=== PATIENT | male | born 1965 | race Caucasian/White ===

== ENCOUNTER 2019-12-26 07:05 | Outpatient (CLI) | payer MEDICARE, SELFPAY ==
[2019-12-26 08:04] LABS: Alanine Aminotransferase 24 U/L (16-63); Albumin Level 3.5 g/dL (3.4-5.0); Alkaline Phosphatase 81 U/L (46-116); Anion Gap 8.6 mmol/L (7-16); Aspartate Amino Transferase 21 U/L (15-37); Bilirubin,Total 1.5 mg/dL (0.00-1.00); Blood Urea Nitrogen 7 mg/dL (7-18); Calcium 8.2 mg/dL (8.5-10.1); Carbon Dioxide 31 mmol/L (21-32); Chloride 106 mmol/L (98-108); Cholesterol 94 mg/dL (0-200); Estimated Glomerular Filt Rate > 60; Glucose 93 mg/dL (70-99); HDL Direct 37 mg/dL (40-60); LDL Cholesterol Calculated 38 mg/dL (<130); Osmolality Calculated 292 mOsm/kg (285-295); Potassium 3.6 mmol/L (3.5-5.1); Prostate Specific Antigen 0.3 ng/mL (< OR = 4.0); Sodium 142 mmol/L (136-145); Total Protein 6.3 g/dL (6.4-8.2); Triglycerides 97 mg/dL (0-150)
== END 2019-12-26 07:06 | disposition home or self-care (01) ==
PROVIDERS: PCP Internal Medicine; Visit Provider Nurse Practitioner
DX: E78.5 Hyperlipidemia, unspecified (principal); Z12.5 Encounter for screening for malignant neoplasm of prostate
CPT/HCPCS: 36415; 80053; 80061; 84153; G0103

== ENCOUNTER 2020-04-08 12:12 | Outpatient (CLI) | payer MEDICARE, OTHER, SELFPAY ==
--- NOTE | 2020-04-08 12:17 | ECHO_ITS ---
Patient Info Name: Trevin Cain Age: 55 years : 1965 Gender: Male Ht: 70 in Wt: 190 lbs BSA: 2.08 m2 HR: 71 bpm BP: 115 / 61 mmHg Heart Rhythm: Sinus Rhythm Technical Quality: Fair Exam Date: 04/08/2020 12:26 PM Exam Location: [facility] [place] Patient Status: Outpatient Admit Date: 04/08/2020 Staff Ordering Physician: Antonio Zamarripa DO Senior Accounting Associate: Livia Roach RDCS Attending Provider: Antonio Zamarripa DO Referring Physician: Dallin HAMMER; Exam Type: CA echo dop color flow w con Study Info Indications I50.22 - Chronic systolic (congestive) heart failure Complete two-dimensional, color flow and Doppler transthoracic echocardiogram is performed with contrast to opacify the left ventricle and to improve the deliniation of the left ventricle endocardial borders. Strain analysis performed. Contrast/Agitated Saline Contrast/Ag. Saline: Definity Amount: 6.00 ml New IV Access: Antecubital Space and Left Site Condition: Site dressing applied and No extravasation History/Risk Factors Hypertension: Yes Dyslipidemia: Yes Congenital Heart Disease (CHD): No Chronic Lung Disease: No Obesity: No Renal Disease: Yes Coronary Artery Disease (CAD) Yes Diabetes Mellitus: No COPD: No Tobacco Use: Former Cerebrovascular Disease: No Deep Vein Thrombosis (DVT): None Dialysis: None Frailty Scale (CSHA): 3: Managing Well Summary 1. Left ventricular chamber dimension is mildly enlarged. 2. Definity contrast administered improved wall motion interpretation. 3. Left ventricular systolic function is moderately reduced, estimated at 40-45%. 4. There is mildly increased left ventricular wall thickness. 5. The left ventricular diastolic function is abnormal. 6. E/e' 11 is mildly elevated. 7. Global longitudinal strain is abnormal at -11.3%. 8. Left atrial chamber dimension is moderately enlarged. 9. There is mild to moderate mitral valve regurgitation. Left Ventricle E/e' 11 is mildly elevated. Global longitudinal strain is abnormal at -11.3%. Definity contrast administered improved wall motion interpretation. Left ventricular chamber dimension is mildly enlarged. Left ventricular systolic function is moderately reduced, estimated at 40-45%. There is mildly increased left ventricular wall thickness. The left ventricular diastolic function is abnormal. Right Ventricle Right ventricular chamber dimension is normal. Right ventricular systolic function is normal. Left Atria Left atrial chamber dimension is moderately enlarged. Right Atria Right atrial chamber dimension is normal. Aortic Valve The aortic valve is trileaflet. There is no aortic valve stenosis. There is no aortic valve regurgitation. Pulmonic Valve There is no pulmonic regurgitation. Mitral Valve There is no mitral valve stenosis. There is mild to moderate mitral valve regurgitation. Tricuspid Valve There is no tricuspid valve regurgitation. Pericardium/Pleural There is no pericardial effusion. Inferior Vena Cava Normal inferior vena cava with >50% collapse upon inspiration consistent with normal right atrial pressure, 5 mmHg. Aorta The aortic root size at the sinus of Valsalva is normal. Left Ventricular Outflow Tract Name Value Normal --------
== END 2020-04-08 12:13 | disposition home or self-care (01) ==
LOC: CHSIMG 12:14
PROVIDERS: PCP Internal Medicine; Visit Provider Internal Medicine Cardiovascular Disease
DX: I50.22 Chronic systolic (congestive) heart failure (principal)
CPT/HCPCS: C8929

== ENCOUNTER 2020-06-16 07:47 | Outpatient (CLI) | payer MEDICARE, SELFPAY ==
[2020-06-16 08:53] LABS: Alanine Aminotransferase 28 U/L (16-63); Albumin Level 3.9 g/dL (3.4-5.0); Alkaline Phosphatase 70 U/L (46-116); Anion Gap 8 mmol/L (8-16); Aspartate Amino Transferase 16 U/L (15-37); Bilirubin,Total 1.1 mg/dL (0.00-1.00); Blood Urea Nitrogen 9 mg/dL (7-18); Carbon Dioxide 28 mmol/L (21-32); Chloride 106 mmol/L (98-108); Cholesterol 127 mg/dL (0-200); Estimated Glomerular Filt Rate > 60; Glucose 91 mg/dL (70-99); HDL Direct 48 mg/dL (40-60); LDL Cholesterol Calculated 57 mg/dL (<130); Osmolality Calculated 292 mOsm/kg (285-295); Sodium 142 mmol/L (136-145); Total Protein 6.9 g/dL (6.4-8.2); Triglycerides 112 mg/dL (0-150)
== END 2020-06-16 07:48 | disposition home or self-care (01) ==
PROVIDERS: PCP Internal Medicine; Visit Provider Nurse Practitioner
DX: E78.5 Hyperlipidemia, unspecified (principal)
CPT/HCPCS: 36415; 80053; 80061

== ENCOUNTER 2020-12-14 07:08 | Outpatient (CLI) | payer MEDICARE, SELFPAY ==
[2020-12-14 08:44] LABS: Alanine Aminotransferase 28 U/L (16-63); Albumin Level 3.6 g/dL (3.4-5.0); Alkaline Phosphatase 76 U/L (46-116); Anion Gap 8 mmol/L (8-16); Aspartate Amino Transferase 17 U/L (15-37); Bilirubin,Total 1.2 mg/dL (0.00-1.00); Blood Urea Nitrogen 8 mg/dL (7-18); Calcium 8.6 mg/dL (8.5-10.1); Carbon Dioxide 29 mmol/L (21-32); Chloride 105 mmol/L (98-108); Cholesterol 122 mg/dL (0-200); Estimated Glomerular Filt Rate > 60; Glucose 109 mg/dL (70-99); HDL Direct 36 mg/dL (40-60); LDL Cholesterol Calculated 52 mg/dL (<130); Osmolality Calculated 293 mOsm/kg (285-295); Potassium 3.6 mmol/L (3.5-5.1); Prostate Specific Antigen 0.2 ng/mL (< OR = 4.0); Sodium 142 mmol/L (136-145); Total Protein 6.4 g/dL (6.4-8.2); Triglycerides 169 mg/dL (0-150)
== END 2020-12-14 07:09 | disposition home or self-care (01) ==
LOC: CHSLAB 07:10
PROVIDERS: PCP Internal Medicine; Visit Provider Nurse Practitioner
DX: E78.5 Hyperlipidemia, unspecified (principal); Z12.5 Encounter for screening for malignant neoplasm of prostate
CPT/HCPCS: 36415; 80053; 80061; 84153; G0103

== ENCOUNTER 2021-06-15 07:27 | Outpatient (CLI) | payer MEDICARE, SELFPAY ==
[2021-06-15 08:18] LABS: Alanine Aminotransferase 33 U/L (16-63); Albumin Level 3.6 g/dL (3.4-5.0); Alkaline Phosphatase 58 U/L (46-116); Anion Gap 10 mmol/L (8-16); Aspartate Amino Transferase 18 U/L (15-37); Bilirubin,Total 1.2 mg/dL (0.00-1.00); Blood Urea Nitrogen 11 mg/dL (7-18); Calcium 8.4 mg/dL (8.5-10.1); Carbon Dioxide 25 mmol/L (21-32); Chloride 108 mmol/L (98-108); Estimated Glomerular Filt Rate > 60; Glucose 100 mg/dL (70-99); Osmolality Calculated 295 mOsm/kg (285-295); Potassium 3.9 mmol/L (3.5-5.1); Sodium 143 mmol/L (136-145); Total Protein 6.6 g/dL (6.4-8.2)
[2021-06-15 08:54] LABS: Cholesterol 134 mg/dL (0-200); HDL Direct 47 mg/dL (40-60); LDL Cholesterol Calculated 58 mg/dL (<130); Triglycerides 145 mg/dL (0-150)
== END 2021-06-15 07:28 | disposition home or self-care (01) ==
LOC: CHSLAB 07:30
PROVIDERS: Internal Medicine Cardiovascular Disease; PCP Internal Medicine; Visit Provider Nurse Practitioner
DX: E78.5 Hyperlipidemia, unspecified (principal)
CPT/HCPCS: 36415; 80053; 80061

== ENCOUNTER 2021-06-30 12:55 | Outpatient (RCR) | payer MEDICARE, OTHER, SELFPAY ==
--- NOTE | 2021-06-30 14:41 | PTOPEVAL ---
Thank you for referring Trevin Cain to [facility].? The patient is scheduled to be seen for therapy? ____x/week for ___ weeks. Please review, sign, date and return this plan of care DAVID. I agree with and certify that the following plan of care is medically necessary. Referring Physician Date Admitting Provider: Attending Provider: Aston Arreola DO Referring Provider: *PT Outpatient Evaluation Start: 06/30/21 13:08 Freq: Status: Active Protocol: Document 06/30/21 13:09 [facility] (Rec: 06/30/21 14:25 [facility] [id number]) Therapy Assessment Status Assessment Status Assessment Status Evaluation Evaluation Information Problem Diagnosis L LE pain Onset 06/28/21 Additional Evaluation Detail LEFS = 47% functionally declined Subjective Information patient reports he has been Query Text:As Reported By Patient/ having increased L LE pain for Family about the last year. he reports he has days when he does fall due to overdoing it in the community. he reports he is also having some numbness in his hands. he reports he has increased pain in the L LE standing or walking on angles/inclines/ declines. 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 he reports he has numbness still in the L LE from radiation and multiple surgeries. 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 he has had no return of cancer since 1994. Prior Level of Function Comments Additional Prior Level of Function patient reports he has had Comments back and L LE problems since 1994. he reports he uses a tens unit for his back frequently. Pain Assessment Timing of Pain Assessment Timing of Pain Assessment Assessment Pain Scale Pain Scale Used Numeric (1 - 10) Self Report Pain Assessment Left Lower Leg(s) Reported Pain Level 3 Greatest Pain Intensity 8 Pain Score Pain Score 3: Self Report Interventions Used
--- NOTE | 2021-07-13 06:54 | PCPTNOTE ---
07/13/21 - patient called yesterday and reports he would like to end therapy due to having more flare ups of pain. as of this date, all progress towards goals will be taken from her most recent evaluation/note. MARGO
== END 2021-07-07 09:43 | disposition home or self-care (01) ==
LOC: CHSPT 12:55
PROVIDERS: Visit Provider Internal Medicine
DX: M79.605 Pain in left leg (principal)
CPT/HCPCS: 97110; 97161

== ENCOUNTER 2021-07-13 10:27 | Outpatient (CLI) | payer MEDICARE, OTHER, SELFPAY ==
--- NOTE | 2021-07-13 10:31 | ECHO_ITS ---
Patient Info Name: Trevin Cain Age: 56 years : 1965 Gender: Male Ht: 69 in Wt: 180 lbs BSA: 2.01 m2 HR: 78 bpm BP: 113 / 67 mmHg Technical Quality: Good Exam Date: 07/13/2021 11:30 AM Exam Location: [facility] Patient Status: Outpatient Admit Date: 07/13/2021 Staff Ordering Physician: Antonio Zamarripa DO Size Stamper: Jada Lemus Attending Provider: Antonio Zamarripa DO Referring Physician: Dallin HAMMER; Exam Type: CA echo doppler color flow Study Info Indications I50.22 - Chronic systolic (congestive) heart failure Complete two-dimensional, color flow and Doppler transthoracic echocardiogram is performed. Strain analysis performed. History/Risk Factors Hypertension: Yes Dyslipidemia: Yes Congenital Heart Disease (CHD): No Chronic Lung Disease: No Obesity: No Renal Disease: Yes Coronary Artery Disease (CAD) Yes Diabetes Mellitus: No COPD: No Tobacco Use: Former Cerebrovascular Disease: No Deep Vein Thrombosis (DVT): None Dialysis: None Frailty Scale (CSHA): 3: Managing Well Summary 1. Complete two-dimensional, color flow and Doppler transthoracic echocardiogram is performed. 2. Left ventricular chamber dimension is moderately enlarged. 3. Left ventricular systolic function is moderately reduced, estimated at 40-45%. 4. The left ventricular diastolic function is grade I diastolic dysfunction. 5. E/e' 10 is mildly elevated. 6. Global longitudinal strain is abnormal at -10.5%. 7. Right ventricular systolic function is reduced and with mildly abnormal TAPSE 1.6 cm. 8. There is mild mitral valve regurgitation. Left Ventricle E/e' 10 is mildly elevated. Global longitudinal strain is abnormal at -10.5%. Left ventricular chamber dimension is moderately enlarged. Left ventricular systolic function is moderately reduced, estimated at 40-45%. The left ventricular diastolic function is grade I diastolic dysfunction. Right Ventricle Right ventricular systolic function is reduced and with mildly abnormal TAPSE 1.6 cm. Right ventricular chamber dimension is not well visualized. Left Atria Left atrial chamber dimension is normal. Right Atria Right atrial chamber dimension is normal. Aortic Valve The aortic valve is trileaflet. There is no aortic valve stenosis. There is no aortic valve regurgitation. Pulmonic Valve There is no pulmonic regurgitation. Mitral Valve There is no mitral valve stenosis. There is mild mitral valve regurgitation. Tricuspid Valve There is no tricuspid valve regurgitation. Pericardium/Pleural There is no pericardial effusion. Inferior Vena Cava Normal inferior vena cava with >50% collapse upon inspiration consistent with normal right atrial pressure, 5 mmHg. Aorta The aortic root size at the sinus of Valsalva is normal. Left Ventricular Outflow Tract Name Value Normal LVOT 2D LVOT Diameter 2.0 cm LVOT Doppler LVOT Peak Velocity 90 cm/s LVOT Peak Gradient 3 mmHg LVOT Mean Gradient 2 mmHg
== END 2021-07-13 10:28 | disposition home or self-care (01) ==
LOC: CHSIMG 10:29
PROVIDERS: PCP Internal Medicine; Visit Provider Internal Medicine Cardiovascular Disease
DX: I50.22 Chronic systolic (congestive) heart failure (principal)
CPT/HCPCS: 93306

== ENCOUNTER 2021-08-23 08:59 | Outpatient (CLI) | payer MEDICARE, OTHER, SELFPAY ==
--- NOTE | 2021-08-23 11:00 | NEURO_ITS ---
Impression: # Complains of numbness of hands. # Bilateral Carpal Tunnel Syndrome. # No ulnar neuropathy. # Normal needle/EMG exam. Nerve Conduction Studies Anti Sensory Summary Table Stim Site NR Peak (ms) P-T Amp (?V) Site1 Site2 Delta-P (ms) Dist (cm) Mark Anthony (m/s) Left Median Anti Sensory (2-3nd Digit) Wrist 4.2 29.0 Wrist 2-3nd Digit 4.2 14.0 33 Wrist 4.2 21.6 Wrist 2-3nd Digit 4.2 14.0 33 Right Median Anti Sensory (2-3nd Digit) Wrist 4.1 10.3 Wrist 2-3nd Digit 4.1 14.0 34 Wrist 5.2 33.4 Wrist 2-3nd Digit 4.1 14.0 34 Left Radial Anti Sensory (Base 1st Digit) Wrist 2.1 29.7 Wrist Base 1st Digit 2.1 0.0 Right Radial Anti Sensory (Base 1st Digit) Wrist 2.3 19.0 Wrist Base 1st Digit 2.3 0.0 Left Ulnar Anti Sensory (5th Digit) Wrist 2.4 52.0 Wrist 5th Digit 2.4 14.0 58 Right Ulnar Anti Sensory (5th Digit) Wrist 2.5 24.9 Wrist 5th Digit 2.5 14.0 56 Motor Summary Table Stim Site NR Onset (ms) O-P Amp (mV) Site1 Site2 Delta-0 (ms) Dist (cm) Mark Anthony (m/s) Left Median Motor (Abd Poll Brev) Wrist 4.3 3.0 Elbow Wrist 4.8 26.0 54 Elbow 9.1 3.4 Right Median Motor (Abd Poll Brev) Wrist 4.1 4.2 Elbow Wrist 5.4 28.0 52 Elbow 9.5 4.1 Left Ulnar Motor (Abd Dig Minimi) Wrist 2.7 4.2 A Elbow Wrist 5.5 31.0 56 A Elbow 8.2 3.4 Right Ulnar Motor (Abd Dig Minimi) Wrist 2.5 6.4 A Elbow Wrist 5.2 29.0 56 A Elbow 7.7 5.1 F Wave Studies NR F-Lat (ms) L-R F-Lat (ms) Left Median (Mrkrs) (Abd Poll Brev) 29.98 0.29 Right Median (Mrkrs) (Abd Poll Brev) 30.27 0.29 Left Ulnar (Mrkrs) (Abd Dig Min) 28.79 0.28 Right Ulnar (Mrkrs) (Abd Dig Min) 28.51 0.28 EMG Side Muscle Nerve Root Ins Act Fibs Amp Dur Recrt Comment Right 1stDorInt Ulnar C8-T1 Nml Nml Nml Nml Nml Right Ext Indicis Radial (Post Int) C7-8 Nml Nml Nml Nml Nml Right Ext Digitorum Radial (Post Int) C7-8 Nml Nml Nml Nml Nml Right BrachioRad Radial C5-6 Nml Nml Nml Nml Nml Right PronatorTeres Median C6-7 Nml Nml Nml Nml Nml Right Abd Poll Brev Median C8-T1 Nml Nml Nml Nml Nml Left 1stDorInt Ulnar C8-T1 Nml Nml Nml Nml Nml Left Ext Indicis Radial (Post Int) C7-8 Nml Nml Nml Nml Nml Left Ext Digitorum Radial (Post Int) C7-8 Nml Nml Nml Nml Nml Left BrachioRad Radial C5-6 Nml Nml Nml Nml Nml Left PronatorTeres Median C6-7 Nml Nml Nml Nml Nml Left Abd Poll Brev Median C8-T1 Nml Nml Nml Nml Nml MTDD
== END 2021-08-23 09:00 | disposition home or self-care (01) ==
LOC: ANHNEURO 09:02
PROVIDERS: PCP Internal Medicine; Visit Provider Internal Medicine
DX: R20.0 Anesthesia of skin (principal); G56.03 Carpal tunnel syndrome, bilateral upper limbs
CPT/HCPCS: 95886; 95911

== ENCOUNTER → 2021-10-19 16:14 | Outpatient (CLI) | payer MEDICARE, OTHER, SELFPAY ==
--- NOTE | ~2021-10-19 | MR_ITS ---
EXAMINATION: MR femur LT wo con DATE: 10/19/2021 17:15 INDICATION: Left thigh pain. TECHNIQUE: Magnetic resonance imaging (MRI) of the left thigh/femur was performed without intravenous contrast. Sequences included axial, sagittal and coronal T1-weighted FSE and fluid sensitive FSE STI R. The contralateral right thigh is included on the coronal images. COMPARISON: None. FINDINGS: There is an ovoid 8.1 x 4.2 x 2.4 cm heterogeneous mass versus complex fluid collection situated uma g the posterior margin and facet within the peripheral fascia of the left rectus femoris muscle cente red proximally 15 cm distal to the level of the epicenter of the left femoral head. The lesion demons trates heterogeneous high and low T2 signal and T1 signal slightly greater than the surrounding muscu lature. There is diffuse subcutaneous edema throughout the left thigh. There is asymmetric atrophy wi th associated feathery muscular edema of the mid to distal left sartorius muscle. There is an additio nal subtle muscular edema within the musculature of the left thigh most prominent at the abductor mag nus and vastus lateralis muscle bellies. There is asymmetric thickening of the cortex and trabecula a long the left femoral diaphysis with normal internal T2 hyperintense marrow fat signal consistent wit h Paget's disease. No fracture or pathologic marrow replacing process. Surgical scar along the subcut aneous tissues overlying the proximal to mid left sartorius muscle. No pathologically enlarged lympha denopathy at the right groin or visualized pelvis. IMPRESSION: 1. 8.1 x 4.2 x 2.4 cm heterogeneous lesion located just within the peripheral fascia long the deep/po sterior margin of the mid left rectus femoris muscle. The absence of intravenous contrast there is un able to differentiate mixed solid and cystic mass versus complex fluid collection in the differential would include hematoma, abscess in the appropriate clinical setting or neoplasm, either benign or ma lignant. Correlate with clinical history and consider pre and postcontrast MRI or CT to exclude an en hancing solid component which would strongly favor neoplasm. 2. Asymmetric atrophy of the left sartorius muscle likely related to prior surgery given the surgical scar directly overlying the proximal to mid sartorius muscle. Correlate with surgical history. 3. Nonspecific scattered mild muscular edema in the left thigh most prominent at the abductor andi and vastus lateralis muscle bellies which has a wide differential however systemic etiologies includi ng autoimmune, collagen vascular disease or other systemic mild ascites are likely given the unilater al distribution. Correlate with clinical history including for any prior radiation treatment to the l eft thigh. 4. 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 Reviewed, dictated and finalized at location B. IMPRESSION: 1. 8.1 x 4.2 x 2.4 cm heterogeneous lesion located just within the peripheral f ascia long the deep/posterior margin of the mid left rectus femoris muscle. The absence of intravenous contrast there is unable to differentiate mixed solid a nd cystic mass versus complex fluid collection in the differential would includ e hematoma, abscess in the appropriate clinical setting or neoplasm, either tariq ign or malignant. Correlate with clinical history and consider pre and postcont rast MRI or CT to exclude an enhancing solid component which would strongly fav or neoplasm. 2. Asymmetric atrophy of the left sartorius muscle likely related to prior surg alexi given the surgical scar directly overlying the proximal to mid sartorius mu scle. Correlate with surgical history. 3. Nonspecific scattered mild muscular edema in the left thigh most prominent a t the abductor andi and vastus lateralis muscle bellies
== END ==
PROVIDERS: PCP Internal Medicine; Visit Provider Orthopaedic Surgery
DX: M79.605 Pain in left leg (principal); C49.22 Malignant neoplasm of connective and soft tissue of left lower limb, including hip; M62.552 Muscle wasting and atrophy, not elsewhere classified, left thigh; R60.9 Edema, unspecified; M88.852 Osteitis deformans of left thigh
CPT/HCPCS: 73721

== ENCOUNTER 2021-11-02 01:00 | Day surgery (SDC) | payer MEDICARE, OTHER, SELFPAY ==
[2021-10-26 13:57] VITALS: BMI 27.3
--- NOTE | 2021-10-26 14:16 | PC.NURSE ---
Report to the Outpatient Waiting Room, entrance under the green pavilion located off [facility], at time ___0615____ on date ___11/02/21____. OR Time: ___814 . - You and your visitor will be asked a series of questions to screen for COVID 19 for your protection. - A mask is required within the hospital. Preoperative COVID Testing Requirements: NONE No COVID Test needed if: (proof is required; if not received patient will have Rapid Test prior to entry) - Patient has received COVID Vaccine at least 14 days prior to procedure date or - Patient has positive COVID test result within last 90 days of surgery date. COVID Test needed if above criteria is not met If not COVID vaccinated a COVID test must be conducted within 72 hours of surgery and patient is asked to isolate self from time of testing until procedure. You will go to the [facility] for your COVID testing. The [facility] is located at the corner of [address] [facility]. You will only be called if COVID results are positive and your surgeon may reschedule your elective surgery date. Patients may have clear liquids (water, carbonated beverages, clear teas, apple juice) until 3 hours prior to surgery with a maximum of 20 ounces. - No food from midnight until time of surgery - Infants may have breast milk until 4 hours before surgery, formula 6 hours prior to surgery. - Children will be allowed to drink immediately following surgery. If applicable, please bring a bottle or sippy cup to assist with drinking. Juice, water, soda, and popsicles are readily available. For infants on formula, please bring formula the day of surgery. Pacifiers are allowed. Take the following medications with a SIP of water the morning of surgery: _CARVEDILOL, GABAPENTIN, ISOSORBIDE, BACLOFEN, TRAMADOL IF NEEDED_ Medications to discontinue per physician __VITAMINS, FISH OIL 3 DAYS PRIOR TO SURGERY, Date to take last dose____10/29/21 Please no make-up, nail gibraltarian, hairspray, perfume, deodorant, or body powder the day of surgery. No jewelry (including any body piercings) or valuables the day of surgery, leave them at home. Please take a shower or bath the night before, or the morning of, surgery with an antibacterial soap. Wear comfortable, loose fitting clothing. Children are encouraged to wear pajamas. - Jewelry must be removed prior to entering the operating room. Rings and piercings that are not removed may be cut off. - The hospital will not accept responsibility for valuables. - Please leave all valuables, including medications, at home the day of surgery. If you are going home after surgery, a licensed owner operator tanker truck driver must drive you home. - NO public transportation without another adult. - We recommend that an adult stay with you for 24 hours following discharge. - We also recommend that you do not drive, make important decision, drink alcoholic beverages, or take any drugs that were not prescribed by your health care provider for at least 24 hours after your discharge time. For Pediatric surgeries, we recommend two adults accompany the child home (only one inside the building at this time). One visitor will be allowed to accompany the patient into the hospital. Patients visitor will be instructed to remain with patient at all times or leave the building. We will allow the visitor to come back to the postoperative area when patient is ready. Follow any additional instructions given to you from your surgeon. Telephone instructions given to ___PT'S SPOUSE -ANTWAN and asked if any additional questions and then verbalized understanding. Patient advised to call surgeon office or pre surgery nurse liaison [phone] if any additional questions.
--- NOTE | 2021-11-01 13:45 | WPDANESEPPF ---
Anes - Initial Pre Proc Eval Procedure: Operation Date: 11/02/21 08:15 Proposed Procedures p Bilateral Open Carpal Tunnel Release - Massimo Huerta MD s Left First Dorsal Compartment Release - Massimo Huerta MD Date/Time: 11/01/21 13:45 Surgeon: Massimo Huerta MD Pre Op Diagnosis: bilateral carpal adriana syndrome, lft dequervain dis Patient Data Age: 56 Gender: M Height: 1.75 m Weight: 84.09 kg Allergies Allergy/AdvReac Type Severity Reaction Status Date / Time Iodinated Contrast Media Allergy Unknown tachycardia Verified 11/02/21 06:10 lisinopril Allergy Unknown Anaphylactic Verified 11/02/21 06:10 Shock losartan Allergy Unknown shortness Verified 11/02/21 06:10 of breath Penicillins Allergy Unknown Rash Verified 11/02/21 06:10 Home Medications Medication Instructions Recorded Confirmed Type aspirin 81 mg tablet,delayed 81 mg PO DAILY 06/03/19 11/02/21 History release omega-3 fatty acids 1,000 mg 1,000 mg PO DAILY 06/16/19 11/02/21 History capsule vitamin B complex 1 cap PO DAILY 10/06/19 11/02/21 History gabapentin 600 mg tablet 1,200 mg PO TID #540 tablet 01/20/21 11/02/21 Rx glucosamine sulf dipotassium Cl 1 tablet PO DAILY 07/04/21 11/02/21 History 750 mg-chondroitin sulf 600 mg tablet vitamin E (dl, acetate) 180 mg 180 mg PO DAILY 07/04/21 11/02/21 History (400 unit) capsule atorvastatin 80 mg tablet See Rx Instructions .ROUTE 08/02/21 11/02/21 Rx .COMPLEX #90 tablet famotidine 40 mg tablet See Rx Instructions .ROUTE 08/25/21 11/02/21 Rx .COMPLEX #90 tablet ranolazine 500 mg tablet,extended See Rx Instructions .ROUTE 08/25/21 11/02/21 Rx release,12 hr .COMPLEX #60 tablet carvedilol 6.25 mg tablet See Rx Instructions .ROUTE 09/08/21 11/02/21 Rx .COMPLEX #60 tablet isosorbide mononitrate 30 mg See Rx Instructions .ROUTE 09/21/21 11/02/21 Rx tablet,extended release 24 hr .COMPLEX #30 tablet tramadol 50 mg tablet 50 mg PO .COMPLEX PRN #180 tablet 09/21/21 10/26/21 Rx baclofen 10 mg tablet 10 mg PO DAILY #30 tablet 09/28/21 11/02/21 Rx nitroglycerin See Rx Instructions .ROUTE 10/26/21 10/26/21 History .COMPLEX PRN Patient hx anesthesia problems: none Family hx anesthesia problems: none Results Review: All pre-operative results and documents have been reviewed as part of the pre-operative evaluation. [facility] Past Medical History Medical History (Updated 11/01/21 @ 13:48 by Nikolay Buckner DO) Anxiety Bilateral hand numbness CAD (coronary artery disease) Claustrophobia Dyslipidemia Hypertension Surgical History Surgical History (Updated 11/01/21 @ 13:48 by Nikolay Buckner DO) History of cholecystectomy History of heart artery stent 13 - 2012 Hx of CABG x5 2010 Family History Family History Mother Family history of neuropathy Other Family history of bronchitis Family history of chronic obstructive pulmonary disease Family history of emphysema Social History Social History Smoking packs per day: 0 Smoking cigarettes per day: 0.0 Years smoked: 25 Smoking pack-years: 0.00 Tobacco type: cigarettes Second hand tobacco smoke exposure: No Smoking end date: 07/16/10 Additional smoking assessment comments: [id number] Alcohol intake: current Drinks per week: 2 Alcohol use details: Social Substance use: never Substance use type: does not use Living arrangements: with family Spiritual care concerns: No Anes - Eval Final PreProcedure Day of Procedure 11/01/21 13:45 Patient weight: overweight Heart: regular rate and rhythm Lungs: clear to auscultation and normal air movement Airway: Mallampati scale class II Neurological: alert and oriented Last oral intake: >/= 8 hours ASA classification: III Emergent: no Anesthetic plan: proceed Anesthesia type and monitoring: general G
[2021-11-02 06:20] VITALS: BP 116/76; PULSE 75; RESP 16; TEMP 36.5; O2SAT 99
[2021-11-02] MEDS: LACTATED RINGERS 1,000 ML 30 ML IV CONT ×2 (06:56→09:37)
--- NOTE | 2021-11-02 07:18 | WPDHPUPDATE1 ---
History and Physical Update Update Date/Time: 11/02/21 07:18 History and Physical has been reviewed, including an updated exam of the patient. There are NO changes in the patient's condition. Risks, benefits, and alternatives have been discussed and questions answered. Patient agrees to proceed with procedure.
[2021-11-02] MEDS: BACITRACIN OINTMENT 15 GM TUBE 1 APPLIC TOPICAL (08:52)
[2021-11-02] MEDS: LIDO 1%/EPINEPHRINE/PF 1:200,000 30 ML VIAL XX (09:04)
[2021-11-02 09:37] VITALS: BP 125/71; PULSE 65; RESP 12; O2SAT 94
--- NOTE | 2021-11-02 09:41 | P.OP_ITS ---
Procedure Note - Detailed Date of Procedure 11/02/21 Pre-op Diagnosis bilateral carpal adriana syndrome, lft dequervain dis Post-op Diagnosis Same Procedure Performed Bilateral carpal tunnel release and left 1st dorsal compartment release Surgeon Massimo Huerta MD Pet Ambassador Leandro Anesthesia MAC Findings Separate EPB compartment on the left. 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 He was taken to the operating room and placed supine on the operating table. He was given IV sedation. Both extremities were prepped and draped in usual fashion. Time-out was held and confirmed. He had a forearm tourniquet on the right. The right carpal tunnel followed by the left and the left 1st dorsal compartment were locally anesthetized with 1% lidocaine with epinephrine. By the time we did the right carpal tunnel over half an hour dwell time had passed On the left side the extremity was exsanguinated with an Cayden wrap and the tourniquet was inflated to 250 mmHg. The incision was made at the carpal tunnel. Blunt dissection revealed the palmar aponeurosis. This and the transverse retinaculum were incised with a 15 blade. Under 3 point retraction the ligament was divided distally and proximally to completely release it. No unusual anatomy was noted in that area. The skin was closed with interrupted 4- 0 nylon suture Attention was turned to the left 1st dorsal compartment. This was opened with a transverse incision. Blunt dissection revealed the retinaculum. A 2 mm branch of the radial nerve was identified along the volar margin of this area. Was protected. The retinaculum was well exposed and a volar incision was made proximally 1 and 1/2 cm. This appeared to completely open the 1st dorsal compartment and the contents were evaluated. The extensor pollicis brevis was not in that compartment but was found just dorsal in a separate compartment. Th is was opened with a 15 blade. The release was done with scissors proximally and distally. There was no significant synovitis in that compartment. This skin wound was closed with intradermal 4-0 Monocryl sutures. The tourniquet was released and the usual bandage applied. Attention was turned to the right side. The tourniquet was not utilized on that side. The incision was made as marked and dissection was carried bluntly through the subcutaneous tissue exposing the palmar aponeurosis. This was opened with scissors and a lipoma was identified this was roughly 1 cm in diameter it was removed. Just dorsal to that was identified a large persistent median artery with its vena comitantes. This was carefully dissected and retracted ulnarward allowing access to the transverse retinaculum. This was incised with a 15 blade. Under 3 point retraction the ligament was divided distally and proximally to completely release it. This artery was further examined and confirmed. The skin was then closed with interrupted 4-0 nylon suture. The usual bandage applied. He is discharged with instructions wound care and follow-up. He has a continuing order for tramadol at home but will prescribe some hydrocodone 5/325 for acute surgical pain. Estimated Blood Loss -5.0 Drains No Packing No Pathology None sent Complications No immediate complications Condition Stable Disposition Same day
[2021-11-02 10:06] VITALS: BP 129/79; PULSE 58; RESP 14; O2SAT 97
[2021-11-02 10:35] VITALS: BP 138/73; PULSE 55; RESP 14
== END 2021-11-02 10:55 | disposition home or self-care (01) ==
PROVIDERS: PCP Internal Medicine; Visit Provider Plastic Surgery
PROC: (CPT 64721; principal; 2021-11-02 08:15)
PROC: (CPT 25000; 2021-11-02 08:15)
DX: G56.03 Carpal tunnel syndrome, bilateral upper limbs (principal); M65.4 Radial styloid tenosynovitis [de Quervain]; I10 Essential (primary) hypertension; E78.5 Hyperlipidemia, unspecified; I25.10 Atherosclerotic heart disease of native coronary artery without angina pectoris; F41.9 Anxiety disorder, unspecified; Z95.1 Presence of aortocoronary bypass graft; Z95.5 Presence of coronary angioplasty implant and graft; Z79.82 Long term (current) use of aspirin; Z87.891 Personal history of nicotine dependence
CPT/HCPCS: 64721; 25000; A9270; J2250; J2704; J3010; J7120

== ENCOUNTER 2021-11-21 08:16 | Outpatient (CLI) | payer MEDICARE, SELFPAY ==
[2021-11-21 08:29] LABS: Basophils Absolute Auto 0.02 K/mm3 (0.00-0.10); Basophils Percent Auto 0.4 % (0.0-1.0); Eosinophils Absolute Auto 0.22 K/mm3 (0.02-0.50); Eosinophils Percent Auto 4.1 % (1.0-6.0); Hematocrit 43.2 % (40.0-54.0); Hemoglobin 14.9 g/dL (14.0-18.0); Immature Granulocyte Absolute 0.01 K/mm3 (0.00-0.00); Immature Granulocyte Percent A 0.2 % (0.0-0.0); Lymphocytes Percent Auto 16.8 % (18.0-42.0); Mean Corpuscular HGB Conc 34.5 g/dL (32.0-36.0); Mean Corpuscular Hemoglobin 33.8 pg (27.0-31.0); Monocytes Absolute Auto 0.24 K/mm3 (0.10-0.90); Monocytes Percent Auto 4.5 % (2.0-11.0); Platelet Count Result 197 K/mm3 (150-420); Red Blood Count 4.41 M/mm3 (4.70-6.10); Red Cell Distribution Width 12.2 % (11.6-14.4); White Blood Count 5.4 K/mm3 (4.8-10.8)
[2021-11-21 08:44] LABS: INR 1.1; Prothrombin Time 11.4 Seconds (9.50-12.10)
[2021-11-21 08:48] LABS: Alanine Aminotransferase 25 U/L (16-63); Albumin Level 3.5 g/dL (3.4-5.0); Alkaline Phosphatase 63 U/L (46-116); Anion Gap 8 mmol/L (8-16); Aspartate Amino Transferase 19 U/L (15-37); Bilirubin,Total 1.3 mg/dL (0.00-1.00); Blood Urea Nitrogen 8 mg/dL (7-18); Calcium 8.5 mg/dL (8.5-10.1); Carbon Dioxide 27 mmol/L (21-32); Chloride 108 mmol/L (98-108); Estimated Glomerular Filt Rate > 60; Glucose 137 mg/dL (70-99); Osmolality Calculated 296 mOsm/kg (285-295); Potassium 3.6 mmol/L (3.5-5.1); Sodium 143 mmol/L (136-145); Total Protein 6.8 g/dL (6.4-8.2)
== END 2021-11-21 08:17 | disposition home or self-care (01) ==
LOC: CHSLAB 08:19
PROVIDERS: PCP Internal Medicine
DX: R22.42 Localized swelling, mass and lump, left lower limb (principal); D49.9 Neoplasm of unspecified behavior of unspecified site
CPT/HCPCS: 36415; 80053; 85025; 85610; 85730

== ENCOUNTER 2022-01-04 07:15 | Outpatient (CLI) | payer MEDICARE, SELFPAY ==
[2022-01-04 08:07] LABS: Cholesterol 126 mg/dL (0-200); HDL Direct 45 mg/dL (40-60); LDL Cholesterol Calculated 53 mg/dL (<130); Prostate Specific Antigen 0.3 ng/mL (< OR = 4.0); Triglycerides 142 mg/dL (0-150)
== END 2022-01-04 07:16 | disposition home or self-care (01) ==
LOC: CHSLAB 07:17
PROVIDERS: PCP Internal Medicine; Visit Provider Internal Medicine
DX: E78.5 Hyperlipidemia, unspecified (principal); Z12.5 Encounter for screening for malignant neoplasm of prostate
CPT/HCPCS: 36415; 80061; 84153; G0103

== ENCOUNTER 2022-06-26 15:22 | Outpatient (CLI) | payer MEDICARE, OTHER, SELFPAY ==
--- NOTE | 2022-06-26 15:33 | ECG_ITS ---
Measurements Intervals [place] Rate: 70 P: 71 NM: 166 QRS: -44 QRSD: 127 T: 56 QT: 423 QTc: 456 Interpretive Statements SINUS RHYTHM LEFT AXIS DEVIATION [QRS AXIS < -30] POSSIBLE RIGHT VENTRICULAR CONDUCTION DELAY [RSR (QR) IN V1/V2] POSSIBLE OLD ANTEROLATERAL MO COMPARED TO ECG 06/17/2019 09:14:48 NO SIGNIFICANT CHANGES Electronically Signed On 06-27-2022 19:15:02 [employer] by Rhoda Todd M.D.
== END 2022-06-26 15:23 | disposition home or self-care (01) ==
LOC: CHSCARD 15:25
PROVIDERS: PCP Internal Medicine Cardiovascular Disease; Visit Provider Internal Medicine Cardiovascular Disease
DX: I50.22 Chronic systolic (congestive) heart failure (principal)
CPT/HCPCS: 93005

== ENCOUNTER 2022-07-07 12:04 | Outpatient (CLI) | payer MEDICARE, OTHER, SELFPAY ==
--- NOTE | 2022-07-07 12:10 | ECHO_ITS ---
Patient Info Name: Trevin Cain Age: 57 years : 1965 Gender: Male Ht: 69 in Wt: 185 lbs BSA: 2.04 m2 HR: 93 bpm BP: 137 / 83 mmHg Heart Rhythm: Sinus Rhythm Technical Quality: Fair Exam Date: 07/07/2022 1:00 PM Exam Location: [facility] Patient Status: Outpatient Admit Date: 07/07/2022 Staff Ordering Physician: Antonio Zamarripa DO Activity Leader: Usha Lin RDCS Attending Provider: Antonio Zamarripa DO Referring Physician: Dallin HAMMER; Exam Type: CA echo doppler color flow Study Info Indications I50.22 - Chronic systolic (congestive) heart failure Complete two-dimensional, color flow and Doppler transthoracic echocardiogram is performed. History/Risk Factors Hypertension: Yes Dyslipidemia: Yes Congenital Heart Disease (CHD): No Chronic Lung Disease: No Obesity: No Renal Disease: Yes Coronary Artery Disease (CAD) Yes Diabetes Mellitus: No COPD: No Tobacco Use: Former Cerebrovascular Disease: No Deep Vein Thrombosis (DVT): None Dialysis: None Frailty Scale (CSHA): 3: Managing Well Summary 1. Complete two-dimensional, color flow and Doppler transthoracic echocardiogram is performed. 2. Left ventricular chamber dimension is moderately enlarged. 3. Left ventricular systolic function is moderately reduced, estimated at 40-45%. 4. The left ventricular diastolic function is grade I diastolic dysfunction. 5. E/e' 14 is mildly elevated. 6. There is mild aortic valve sclerosis. 7. There is mild to moderate mitral valve regurgitation. 8. No pulmonary hypertension, estimated pulmonary arterial systolic pressure is 17 mmHg. Left Ventricle E/e' 14 is mildly elevated. Left ventricular chamber dimension is moderately enlarged. Left ventricular systolic function is moderately reduced, estimated at 40-45%. The left ventricular diastolic function is grade I diastolic dysfunction. Right Ventricle Right ventricular systolic function is normal and with normal TAPSE 1.9 cm. Right ventricular chamber dimension is normal. Left Atria Left atrial chamber dimension is normal. Right Atria Right atrial chamber dimension is normal. Aortic Valve The aortic valve is trileaflet. There is mild aortic valve sclerosis. There is no aortic valve stenosis. There is no aortic valve regurgitation. Pulmonic Valve There is no pulmonic regurgitation. Mitral Valve There is no mitral valve stenosis. There is mild to moderate mitral valve regurgitation. Tricuspid Valve There is no tricuspid valve regurgitation. No pulmonary hypertension, estimated pulmonary arterial systolic pressure is 17 mmHg. Pericardium/Pleural There is no pericardial effusion. Inferior Vena Cava Normal inferior vena cava with >50% collapse upon inspiration consistent with normal right atrial pressure, 5 mmHg. Aorta The aortic root size at the sinus of Valsalva is normal. Left Ventricular Outflow Tract Name Value Normal LVOT 2D LVOT Diameter 2.0 cm LVOT Doppler LVOT Peak Velocity 55 cm/s LVOT Peak Gradient 1
== END 2022-07-07 12:05 | disposition home or self-care (01) ==
LOC: CHSIMG 12:07
PROVIDERS: Visit Provider Internal Medicine Cardiovascular Disease
DX: I50.22 Chronic systolic (congestive) heart failure (principal); I34.0 Nonrheumatic mitral (valve) insufficiency; I35.8 Other nonrheumatic aortic valve disorders
CPT/HCPCS: 93306

== ENCOUNTER 2022-07-08 10:25 | Emergency (ER) | payer MEDICARE, OTHER, SELFPAY ==
--- NOTE | ~2022-07-08 | CT_ITS ---
EXAMINATION: CT abdomen pelvis wo con DATE: 07/08/2022 11:11 INDICATION: Left flank pain. TECHNIQUE: Computed tomography (CT) of the abdomen and pelvis was performed without intravenous contr ast. Automated exposure control and iterative reconstruction technique were employed. The dose-length product was 818.20 mGy-cm. COMPARISON: 04/21/2016 FINDINGS: Minimal bibasilar atelectasis. Heart size is normal. No pericardial or pleural effusion. Coronary art alexi stenting. Unchanged subendocardial fat at the apical and periapical segments of the left ventricl e consistent with chronic infarct. A a few unchanged subcentimeter low-attenuation hepatic cysts. Cho lecystectomy clips the gallbladder fossa. Pancreas, spleen and bilateral adrenal glands are normal. K idneys and ureters are normal with no urolithiasis, hydroureteronephrosis or perinephric/ureteral str anding. Bladder is normal. Prostatomegaly measuring 4.0 x 3.3 cm. Moderate amount of scattered coloni c stool. Small bowel and appendix are normal. No free intraperitoneal gas or fluid. No pathologically enlarged abdominal or pelvic lymphadenopathy. Mild lumbar and lower thoracic spondylosis. IMPRESSION: 1. No urolithiasis or acute intra-abdominal/pelvic process. 2. Coronary artery disease post stenting with stigmata of chronic infarct at the apical and periapica l segments of the left ventricle. Reviewed, dictated and finalized at location A. ING SERVICES DIRECTOR IMPRESSION: 1. No urolithiasis or acute intra-abdominal/pelvic process. 2. Coronary artery disease post stenting with stigmata of chronic infarct at th e apical and periapical segments of the left ventricle.
[2022-07-08 10:38] VITALS: BP 131/91; PULSE 92; RESP 16; TEMP 36.9; O2SAT 98
--- NOTE | 2022-07-08 10:48 | ED.BACK ---
HPI - Back Pain/Injury General Chief Complaint: Back Pain/Injury Stated Complaint: pain in middle left of back Time Seen by Provider: 07/08/22 10:47 History of Present Illness HPI Narrative: This is a 57-year-old male with past medical history of coronary artery disease status post 5 vessel CABG, presenting the emergency department complaining of left-sided flank pain for the past 2 days. This is described as cramping with intermittent sharp flares. At baseline he complains of 4-10 pain with flares reaching 9 out of 10 pain he states this is different from prior back and does not radiate. He denies any new or worsening weakness, incontinence or saddle anesthesia. Related Data Home Medications Medication Instructions Recorded Confirmed aspirin 81 mg tablet,delayed 81 mg PO DAILY 06/03/19 07/08/22 release omega-3 fatty acids 1,000 mg 1,000 mg PO DAILY 06/16/19 07/08/22 capsule (Fish Oil Concentrate) vitamin B complex 1 cap PO DAILY 10/06/19 07/08/22 glucosamine sulf dipotassium Cl 1 tablet PO DAILY 07/04/21 07/08/22 750 mg-chondroitin sulf 600 mg tablet (Glucosamine-Chondroitin 3X Triple Strength) vitamin E (dl, acetate) 180 mg 180 mg PO DAILY 07/04/21 07/08/22 (400 unit) capsule nitroglycerin 0.4 mg sublingual See Rx Instructions .Route 10/26/21 07/08/22 tablet .COMPLEX PRN Chest Pain methocarbamol 500 mg tablet 500 mg PO QHS 06/26/22 07/08/22 nortriptyline 25 mg capsule 25 mg PO QHS 06/26/22 07/08/22 bupropion HCl 300 mg 24 hr tablet, 300 mg PO DAILY 07/08/22 07/08/22 extended release Allergies Allergy/AdvReac Type Severity Reaction Status Date / Time Iodinated Contrast Media Allergy Unknown tachycardia Verified 07/08/22 10:43 lisinopril Allergy Unknown Anaphylactic Verified 07/08/22 10:43 Shock losartan Allergy Unknown shortness Verified 07/08/22 10:43 of breath Penicillins Allergy Unknown Rash Verified 07/08/22 10:43 Review of Systems Review of Systems: CONSTITUTIONAL: Denies fever, chills, or sweats. CARDIOVASCULAR: Denies chest pain, palpitations, or edema. RESPIRATORY: Denies cough or dyspnea. GASTROINTESTINAL: Denies abdominal pain, nausea, vomiting, or diarrhea. GENITOURINARY: Denies dysuria or hematuria. MUSCULOSKELETAL: Left low back pain denies joint pain, or myalgia. NEUROLOGIC: Denies headache, numbness, dizziness, or weakness. PSYCHIATRIC: Denies anxiety or depression. [facility]LY [facility] Past Medical History Medical History Anxiety Bilateral hand numbness CAD (coronary artery disease) Claustrophobia Dyslipidemia Hypertension Surgical History Surgical History History of carpal tunnel surgery of left wrist History of carpal tunnel surgery of right wrist History of cholecystectomy History of colonoscopy 2014 History of heart artery stent 13 stents- 2012 5-way bipass- 2011 History of knee surgery R knee meniscus, [place]ico[place] History of surgery on lower extremity Cancer surgery, L leg, 1994, Dr. Kyle History of throat surgery 2018 Hx of CABG x5 2010 Family History Family History Mother Family history of neuropathy Other Family history of bronchitis Family history of chronic obstructive pulmonary disease Family history of emphysema Social History Social History Smoking packs per day: 0 Smoking cigarettes per day: 0.0 Years smoked: 25 Smoking pack-years: 0.00 Smoking status: Former smoker Tobacco type: cigarettes Second hand tobacco smoke exposure: No Smoking end date: 07/16/10 Additional smoking assessment comments: [id number] Alcohol intake: current Alcohol use details: Social, occasional Substance use: never Substance use type: does not use Additional occupation/education comments: disabled Gender identity (if
[2022-07-08 11:03] LABS: Appearance Urine Clear (Clear); Bilirubin Urine Negative (Negative); Blood Urine Negative (Negative); Glucose Urine UA Negative (Negative); Ketones Urine Negative (Negative); Leukocyte Esterase Ur Negative LEU/UL (Negative); Nitrate Urine Negative (Negative); Protein Urine Negative (Negative); Specific Grav Ur 1.025 (1.010-1.020); Urobilinogen Urine 0.2 mg/dL (0.2-1.0)
[2022-07-08 11:05] LABS: Add Urine Microscopic? NO; Color Urine Yellow (Yellow)
[2022-07-08] MEDS: methocarbamoL 500 MG TABLET PO (11:29)
[2022-07-08] MEDS: KETOROLAC 30 MG/ML VIAL (*BKC) IM (11:30)
[2022-07-08] MEDS: ACETAMINOPHEN 500 MG TABLET 1000 MG PO (11:30)
[2022-07-08 11:52] VITALS: BP 127/87
[2022-07-08 12:08] VITALS: BP 127/87; PULSE 86; RESP 16; TEMP 36.4; O2SAT 100
== END 2022-07-08 12:10 | disposition home or self-care (01) ==
PROVIDERS: Emergency Provider Preventive Medicine Aerospace Medicine
DX: M62.830 Muscle spasm of back (principal); I25.810 Atherosclerosis of coronary artery bypass graft(s) without angina pectoris; I10 Essential (primary) hypertension; E78.5 Hyperlipidemia, unspecified; Z79.82 Long term (current) use of aspirin; Z87.891 Personal history of nicotine dependence; Z95.1 Presence of aortocoronary bypass graft
CPT/HCPCS: 74176; 81003; 96372; 99284; A9270; J1885

== ENCOUNTER 2024-11-05 10:00 | Outpatient (CLI) | payer MEDICARE, SELFPAY ==
--- NOTE | ~2024-11-05 | XR_ITS ---
AP view of the pelvis and AP and lateral views of the left hip Clinical history: Pain Findings: No acute fracture or dislocation is seen. Osseous alignment is anatomic. Bilateral hip and SI joint spaces are preserved. Soft tissues are unremarkable. Impression: No significant abnormality is seen. Reviewed, dictated and finalized at [facility]. Impression: No significant abnormality is seen.
== END 2024-11-05 10:01 | disposition home or self-care (01) ==
PROVIDERS: PCP Physician Assistant; Visit Provider Physician Assistant
DX: M25.552 Pain in left hip (principal)
CPT/HCPCS: 73502

== ENCOUNTER 2024-11-07 09:16 | Outpatient (CLI) | payer MEDICARE, SELFPAY ==
--- NOTE | ~2024-11-07 | CT_ITS ---
CT lumbar spine wo con Ordering provider: Kamala Hanks, RERE History: 59 years Male with . Lumbar radicular pain . Comparison: None. Technique: CT lumbar spine without contrast. Automated exposure control and iterative reconstruction technique were employed. The dose-length product was 830.04 mGy-cm. FINDINGS: VERTEBRAE: Normal height and alignment. No subluxation or visible acute fracture. Degenerative change s of the spine. DISC SPACES: Narrowing of the disc L1-L2. Bilateral facet joint disease at the level of L4-L5 and L5- S1 T12-L1: No stenosis. L1-L2: No stenosis. Mild diffuse disc bulge. Bilateral narrowing of the foramina. L2-L3: No stenosis. Mild diffuse disc bulge. L3-L4: No stenosis. Mild diffuse disc bulge L4-L5: No stenosis. Diffuse disc bulge with bilateral narrowing of the foramina. Bilateral nerve higinio t compression is highly suggestive. L5-S1: No stenosis. PARASPINOUS SOFT TISSUES: Mild atheromatous disease of the abdominal aorta. IMPRESSION: Multilevel degenerative disc disease with multilevel disc bulges and intervertebral foraminal narrowi ng. MRI is better for evaluation. No acute osseous abnormality. Reviewed, dictated and finalized at location [facility]. IMPRESSION: Multilevel degenerative disc disease with multilevel disc bulges and interverte bral foraminal narrowing. MRI is better for evaluation. No acute osseous abnormality.
== END 2024-11-07 09:17 | disposition home or self-care (01) ==
LOC: MICIMG 09:16
PROVIDERS: PCP Physician Assistant; Visit Provider Physician Assistant
DX: M51.369 Other intervertebral disc degeneration, lumbar region without mention of lumbar back pain or lower extremity pain (principal); M48.061 Spinal stenosis, lumbar region without neurogenic claudication
CPT/HCPCS: 72131